=== PATIENT | female | born 1935 | race Caucasian/White ===

== ENCOUNTER 2019-03-08 12:23 | Inpatient (IN) | payer OTHER ==
[~2019-03-08] VITALS: Ht 167.6 cm; Wt 66.7 kg
--- NOTE | 2019-03-08 12:30 | NUR ---
Sarahy steiner in ED - 03/08/19 at 1230 by TRAVIS PATIENT BIBA TO BED 10.
--- NOTE | 2019-03-08 12:30 | NUR ---
PT PLACED IN BED 10 BY EMS.
[2019-03-08 12:35] VITALS: BP 113/69
--- NOTE | 2019-03-08 12:45 | NUR ---
DR. ROD AT BEDSIDE EVALUTING PATIENT.
[2019-03-08] MEDS ORDERED: NACL 0.9% 1,000 ML IV ONE (12:55)
--- NOTE | 2019-03-08 13:05 | NUR ---
XRAY AT BEDSIDE
--- NOTE | 2019-03-08 13:10 | NUR ---
83 Y/O FEMALE PRESENTING WITH C/C OF FAINTING; PER FAMILY SHE HAS NO MEDICAL HX, PATIENT WITHIN NORMAL LIMITS. DID NOT HIT HEAD OF LOSS CONSCIOSNESS. EPISODE HAPPENED APPROX AN HOUR AGO. PATIENT BRENNAN IN BY AMBULANCE. SIDE RAIL X1. FAMILY AT BEDSIDE.
[2019-03-08 14:10] LABS: BASOPHILS % (AUTO) 0.5 % (0.0-2.0); EOSINOPHILS # (AUTO) 0.1 K/uL (0-0.4); EOSINOPHILS % (AUTO) 0.8 % (0.0-4.0); HEMATOCRIT 21.4 % (36-48); LYMPHOCYTES # (AUTO) 0.6 K/uL (2.5-16.5); LYMPHOCYTES % (AUTO) 8.7 % (20.5-51.1); MEAN CORPUSCULAR HEMOGLOBIN 24 pg (27-31); MEAN CORPUSCULAR HGB CONC 31 g/dL (33-37); MEAN CORPUSCULAR VOLUME 78.7 fL (80-94); MONOCYTES # (AUTO) 0.5 K/uL (0.8-1.0); MONOCYTES % (AUTO) 6.6 % (1.7-9.3); NEUTROPHILS # (AUTO) 6.2 K/uL (1.8-7.7); NEUTROPHILS % (AUTO) 83.4 % (42.2-75.2); PLATELET COUNT (AUTO) 427 K/uL (140-450); RED BLOOD CELL COUNT(AUTO) 2.72 MIL/uL (4.20-5.40); RED CELL DISTRIBUTION WIDTH 15.5 % (11.6-13.7); WHITE BLOOD COUNT (AUTO) 7.4 K/uL (4.8-10.8)
[2019-03-08 14:12] LABS: ANION GAP 15.4 (8-16); CARBON DIOXIDE 21.2 mmol/L (21-32); CHLORIDE 109 mmol/L (98-107); GLUCOSE 97 mg/dL (74-106); POTASSIUM 4.6 mmol/L (3.5-5.1); SODIUM SERUM 141 mmol/L (136-145); UREA NITROGEN, BLOOD 25 mg/dL (7-18)
[2019-03-08 14:15] LABS: HEMOGLOBIN 6.6 g/dL (12.0-16.0)
[2019-03-08 14:18] LABS: ALBUMIN 2.7 g/dL (3.4-5.0); ASPARTATE AMINOTRANSFERASE 18 U/L (15-37); LIPASE 61 U/L (73-393); TOTAL BILIRUBIN 0.1 mg/dL (0.0-1.0)
[2019-03-08 14:26] LABS: CREATINE KINASE MB 1.4 ng/mL (0-3.6)
[2019-03-08 15:30] LABS: PROTHROMBIN TIME 9.6 secs (10.8-13.4)
[2019-03-08] MEDS ORDERED: NACL 0.9% 1,000 ML IV SCH (15:37)
[2019-03-08] MEDS ORDERED: MECLIZINE 25 MG TAB PO PRN (15:40)
[2019-03-08] MEDS ORDERED: ONDANSETRON 4 MG/2 ML VIAL IVP PRN (15:40)
[2019-03-08] MEDS ORDERED: ACETAMINOPHEN 325 MG TAB PO PRN (15:40)
--- NOTE | 2019-03-08 16:19 | NUR ---
PT RESTING IN BED, FAMILY AT BEDSIDE, DENIES DIZZINES, PAIN OR SOB AT THIS TIME. VSS.
[2019-03-08 16:27] LABS: FREE T4 (FREE THYROXINE) 0.93 ng/dL (0.76-1.46); MAGNESIUM 2.1 mg/dL (1.8-2.4); PHOSPHORUS 2.6 mg/dL (2.5-4.9); THYROID STIMULATING HORMONE 2.91 uIU/mL (0.34-3.74)
--- NOTE | 2019-03-08 16:34 | NUR ---
PT TRANSFERRED TO TELE.
--- NOTE | 2019-03-08 16:45 | NUR ---
Patient will be admitted to care of DR. BAPTISTE. Admited to TELEMETRY . Will go to [id number]. Belongings list completed. Report to BRAEDEN LUCERO .
--- NOTE | 2019-03-08 16:45 | NUR ---
Received report from ER nurse. Pt is in stable condition and resting in bed. Admission assessment complete. No complains of pain. family by bedside. Call light in reach.
--- NOTE | 2019-03-08 16:50 | NUR ---
PT SKIN IS INTACT. LEFT AC 20 G INTACT AND PATENT. IV LINE FLUSHED. PT'S BELONGINGS WITH PATIENT. SKIN INTACT. PT AMBULATES. AXO 4. FAMILY BY BEDSIDE. CALL LIGHT IN REACH
[2019-03-08 16:52] VITALS: BP 156/80
--- NOTE | 2019-03-08 18:55 | NUR ---
Blood verification done by bedside. Pt understands symptoms of blood reaction. Blood cross check done with second nurse. Pt is resting in bed. Call light in reach.
--- NOTE | 2019-03-08 19:00 | NUR ---
Shift report given to microbiology lab manager nurse. Pt is in stable condition. Call light in reach.
--- NOTE | 2019-03-08 19:05 | NUR ---
Received endorsement from AM shift RN; patient A/Ox4, able to make needs known, Thai speaking, ambulatory. Patient is talking with daughters; introduced self, updated board. no SOB or distress noted, on room air. IV site noted on left antecubital. 20 gauge, running 1 packet of packed red blood cells at 100mL/hr; RN stated blood was started at 1850. Skin intact. Bed in the lowest position, call light within reach. Initial assessment done. Will continue to monitor.
[2019-03-08 20:00] VITALS: BP 149/78
[2019-03-08] MEDS: DOCUSATE SODIUM 100 MG GELCAP PO SCH (21:00)
--- NOTE | 2019-03-08 21:00 | NUR ---
Vitals taken,, no distress noted. Patient declined due med at this time.
--- NOTE | 2019-03-08 22:15 | NUR ---
Blood transfusion completed at this time.
[2019-03-08 22:38] LABS: APPEARANCE,URINE CLEAR (CLEAR); BILIRUBIN,URINE NEGATIVE (NEGATIVE); BLOOD, URINE NEGATIVE (NEGATIVE); COLOR,URINE YELLOW (YELLOW); LEUKOCYTE ESTERASE ,URINE NEGATIVE (NEGATIVE); NITRITE, URINE NEGATIVE (NEGATIVE); PH,URINE 6.5 (5.0-9.0); UGLUCOSE TRACE (NEGATIVE)
[2019-03-09] VITALS: BP 132/68
--- NOTE | 2019-03-09 00:30 | NUR ---
Vitals taken, no distress noted.
--- NOTE | 2019-03-09 02:51 | NUR ---
Checks made; no SOB or distress noted. Patient resting comfortably, visible chest rise and fall noted.
[2019-03-09 04:00] VITALS: BP 153/90
--- NOTE | 2019-03-09 04:40 | NUR ---
Vitals taken, no SOB or distress noted.
[2019-03-09 05:56] LABS: BASOPHILS # (AUTO) 0.1 K/uL (0.00-0.22); BASOPHILS % (AUTO) 0.8 % (0.0-2.0); EOSINOPHILS # (AUTO) 0.3 K/uL (0-0.4); EOSINOPHILS % (AUTO) 3.6 % (0.0-4.0); HEMATOCRIT 25.4 % (36-48); HEMOGLOBIN 8.2 g/dL (12.0-16.0); LYMPHOCYTES # (AUTO) 1.3 K/uL (2.5-16.5); MEAN CORPUSCULAR HEMOGLOBIN 26 pg (27-31); MEAN CORPUSCULAR HGB CONC 32 g/dL (33-37); MEAN CORPUSCULAR VOLUME 79.8 fL (80-94); MONOCYTES # (AUTO) 0.8 K/uL (0.8-1.0); MONOCYTES % (AUTO) 10.7 % (1.7-9.3); NEUTROPHILS # (AUTO) 4.8 K/uL (1.8-7.7); NEUTROPHILS % (AUTO) 66.9 % (42.2-75.2); PLATELET COUNT (AUTO) 420 K/uL (140-450); RED BLOOD CELL COUNT(AUTO) 3.18 MIL/uL (4.20-5.40); RED CELL DISTRIBUTION WIDTH 16.2 % (11.6-13.7); WHITE BLOOD COUNT (AUTO) 7.2 K/uL (4.8-10.8)
[2019-03-09 06:09] LABS: ANION GAP 14.4 (8-16); CARBON DIOXIDE 23.7 mmol/L (21-32); CHLORIDE 108 mmol/L (98-107); CREATININE 0.8 mg/dL (0.6-1.3); GLUCOSE 93 mg/dL (74-106); POTASSIUM 4.1 mmol/L (3.5-5.1); SODIUM SERUM 142 mmol/L (136-145); UREA NITROGEN, BLOOD 17 mg/dL (7-18)
[2019-03-09] MEDS ORDERED: SODIUM FERRIC GLUCONATE 125 MG in NACL 0.9% 100 ML IV SCH ×2 (06:10→08:00)
[2019-03-09 06:21] LABS: CHOL/HDL RATIO 5.2 (1-4.5); MAGNESIUM 2.2 mg/dL (1.8-2.4); PHOSPHORUS 2.8 mg/dL (2.5-4.9)
--- NOTE | 2019-03-09 06:29 | NUR ---
Vitals stable, due meds given. Will endorse to AM shift RN for continuity of care.
--- NOTE | 2019-03-09 07:10 | NUR ---
RECEIVED BEDSIDE REPORT FROM SALVAGE CUTTER NURSE.PATIENT IS AWAKE, ALERT AND ORIENTEDX4. NO SIGNS OF DISTRESS ON RA. SKIN IS INTACT. IV ON L AC 20G. SL CLEAN, DR AND INTACT. ABLE TO MAKE NEEDS KNOWN. CONTINENT. AMBULATORY. WILL CONTINUE TO MONITOR THE PATIENT.
[2019-03-09 08:00] VITALS: BP 158/88
[2019-03-09] MEDS ORDERED: FERROUS SULFATE 325 MG TABEC PO SCH (08:00)
--- NOTE | 2019-03-09 08:16 | NUR ---
PATIENT HAS BEEN SCREENED AND CATEGORIZED HIGH NUTRITION RISK. PATIENT WILL BE SEEN WITHIN 1-2 DAYS OF ADMISSION. 03/09/19-03/10/[address]
[2019-03-09] MEDS ORDERED: FERR324T11 PO (08:51)
[2019-03-09] MEDS ORDERED: METPCK PO (08:51)
[2019-03-09] MEDS: DOCUSATE SODIUM 100 MG GELCAP PO SCH (08:51)
[2019-03-09] MEDS ORDERED: DOCU-299 PO (08:51)
[2019-03-09] MEDS ORDERED: ASCO500T45 PO (08:52)
--- NOTE | 2019-03-09 08:56 | NUR ---
ADMINISTERED MEDS. PATIENT TOLERATED WELL. EDUCATED ON SIDE EFFECTS. WILL CONTINUE TO MONITOR. FAMILY AT BEDSIDE
[2019-03-09] MEDS ORDERED: PSYLLIUM 12.2 GM/PKT PO SCH ×2 (09:00)
[2019-03-09] MEDS ORDERED: ASCORBIC ACID 500 MG TAB PO SCH ×2 (09:00)
--- NOTE | 2019-03-09 10:31 | NUR ---
PATIENT AMBULATES TO THE RESTROOM AND AROUND THE HALLS WITH NO ASSISTANCE. GAIT IS STEADY. PATIENT AMBULATED WITH PT. SEE PT NOTES
--- NOTE | 2019-03-09 11:00 | NUR ---
ORTHO VITALS ARE STATED LAYING 147/77 116 SITTING 135/74 122 STANDING 116/74 HR 136
--- NOTE | 2019-03-09 11:16 | NUR ---
DC PLANNIN83 Y/O FEMALE PATIENT FROM HOME. ADMITTED DUE TO SYNCOPAL EPISODE. PAST MEDICAL HISTORY OF IRON DEFICIENCY ANEMIA. H/H ON ADMISSION 6.6/21.4, TODAY 8.2/25.4 AFTER 1 UNIT PRBC. ON FERRIC SODIUM IV Q24H. CARDIO CONSULT WITH DR. Dyana ROACH. CAROTID ARTERY US IS NEGATIVE. HEAD CT NEGATIVE. DC PLANNING PENDING ON PATIENT'S RESPONSE TO TREATMENT.
--- NOTE | 2019-03-09 11:39 | NUR ---
Sort Line Note: Basic Screen: Yes High Risk DC Screen Yes Name: CHAU Bucio Relationship: DAUGHTER Pre-Admission Living Arrangements: Lives Alone Prior ADL Independent Current Home Health Name/Tel: N/A Current DME/02 Name/Tel: N/A Current Hospice Name/Tel: N/A Current Dialysis Name/Tel: N/A Healthcare Decision Maker: Next of Kin Other: BELL HERNANDEZ - DAUGHTER Advance Directive Yes Physician Orders for Life Sustaining Treatment Form No Patient/Family Have Educational Needs No Information Taught: Advance Directive Person Taught: Patient Teaching Tools: Verbal Factors Affecting Learning: None Participation Level: Active Evaluation: Verbalizes Understanding Needs Additional Education: No Discipline: Case Mgt/Social Svcs Tentative Discharge Plan/Destination: No Needs Identified Will require assistance post discharge: No Referred to [facility]: No Tentative Discharge Plan Summary: Patient is an 83 year old female admitted for a syncopal episode. Patient has PMHX of iron deficiency. Patient was admitted from home. BEKAH verified demographics with patient. Patient requested to add daughter Tequila Agustin [phone] to emergency contact. SW provided education on advanced directive. Patient stated that she has one completed and daughter will provide document to medical staff. Patient denied mental health history and substance abuse history. Patient's tentative discharge plan is to return home. No further needs identified. Signature: ERIN Leggett Date: Mar 09, 2019 Time: 11:39
[2019-03-09 12:00] VITALS: BP 146/90
[2019-03-09] MEDS ORDERED: MIRABULK PO (12:19)
[2019-03-09] MEDS ORDERED: GUAI-646 PO (12:35)
--- NOTE | 2019-03-09 13:32 | NUR ---
03/09/19 RD INITIAL ASSESSMENT COMPLETED PLEASE REFER TO NUTRITION ASSESSMENT UNDER CARE ACTIVITY FOR ESTIMATED NUTRITIONAL NEEDS. 1. CONTINUE REGULAR DIET TOLERATED 2. NUTRITION EDUCATION FOR IRON DEFICIENCY WAS GIVEN TO PATIENT 3. RD TO FOLLOW-UP 5-7 DAYS, LOW RISK DENISE JALLOH, RD
--- NOTE | 2019-03-09 13:35 | NUR ---
EDUCATED PATIENT ON DISEASE PROCESS, ABN S/SX, WHEN TO GO TO THE ER, EDUCATED ON FOLLOW UP W PCP, EDUCATED ON MEDS, MEDS SENT ELECTRONICALLY TO [facility]. REFUSED PNA AND FLU VACCINE. REMOVED IV, TIP INTACT. ID BANDS REMOVED. PATIENT LEFT TO GO HOME IN STABLE CONDITION WITH FAMILY.
[2019-03-09] MEDS ORDERED: FERROUS GLUCONATE 324 MG TAB PO SCH (17:00)
== END 2019-03-09 13:35 | disposition home or self-care (01) | DRG 811 ==
LOC: MED 12:23 → MMU 15:45
PROVIDERS: ADMIT General Practice; ATTEND General Practice
PROC: 30233N1 Transfusion of Nonautologous Red Blood Cells into Peripheral Vein, Percutaneous Approach (ICD-10-PCS; principal; 2019-03-08)
DX: D50.9 Iron deficiency anemia, unspecified (principal); E43 Unspecified severe protein-calorie malnutrition; G90.8 Other disorders of autonomic nervous system; E86.0 Dehydration; Z66 Do not resuscitate; Z68.23 Body mass index [BMI] 23.0-23.9, adult
CPT/HCPCS: 36415; 70450; 71045; 80048; 80053; 81003; 82140; 82150; 82272; 82550; 82553; 82607; 82728; 82746; 83036; 83540; 83690; 83735; 84100; 84439; 84443; 84484; 85025; 85045; 85610; 85730; 86886; 86900; 86901; 86920; 87081; 93005; 93880; 96360; 99285; J2916; J7030; P9016; Q0092